=== PATIENT | female | born 1995 | race Caucasian/White ===

== ENCOUNTER 2019-07-13 17:53 | Inpatient (IN) | payer OTHER ==
[~2019-07-13] VITALS: Ht 160 cm; Wt 68.1 kg
[2019-07-13] MEDS ORDERED: IV NORMAL SALINE 1,000ML 1,000 ML IV ONE ×2 (18:15→19:30)
--- NOTE | 2019-07-13 18:22 | PHYS DOC ---
Adult General Chief Complaint Chief Complaint: hyperglycemia HPI HPI 24-year-old female with type 1 diabetes presents with hyperglycemia. The patient has an insulin pump. Over the last 2 days, the patient's blood sugars have been above 200. She has been attempting to compensate with her insulin pump reviewed today, the patient began vomiting several hours ago. She's had multiple episodes of vomiting. She has attempted to give her some more insulin her blood sugar continues to climb. It is over 500 at her last check. She decided to come the emergency room. She has been well controlled for several years. She has not had a severe hyperglycemia episode about 5 years. The patient denies any other medical complaints prior to the vomiting. She has been depressed lately as she had a second trimester miscarriage in May. The patient also had an eye exam today and her pupils were dilated. His was a regularly scheduled exam. She denies fever or chills. Review of Systems Review of Systems Constitutional: Denies fever or chills [] Eyes: Denies change in visual acuity, redness, or eye pain [] HENT: Denies nasal congestion or sore throat [] Respiratory: Denies cough or shortness of breath [] Cardiovascular: No additional information not addressed in HPI [] GI: Nausea, vomiting. Denies abdominal pain, bloody stools or diarrhea [] : Denies dysuria or hematuria [] Musculoskeletal: Denies back pain or joint pain [] Integument: Denies rash or skin lesions [] Neurologic: Denies headache, focal weakness or sensory changes [] Endocrine: Denies polyuria or polydipsia [] All other systems were reviewed and found to be within normal limits, except as documented in this note. Current Medications Current Medications Current Medications Medications (Trade) Dose Ordered Sig/[facility] Start Time Stop Time Status Last Admin Dose Admin Ondansetron HCl (Zofran) 4 mg 1X ONCE 07/13/19 18:15 07/13/19 18:16 UNV Sodium Chloride 1,000 ml @ 1,000 mls/hr 1X ONCE 07/13/19 18:15 07/13/19 19:14 UNV Physical Exam Physical Exam Constitutional: Well developed, well nourished, no acute distress, non-toxic appearance. [] HENT: Normocephalic, atraumatic, bilateral external ears normal, oropharynx dry, lips dry, no oral exudates, nose normal. [] Eyes: PERRLA, moderately dilated pupils, EOMI, conjunctiva normal, no discharge. [] Neck: Normal range of motion, no tenderness, supple, no stridor. [] Cardiovascular:Heart rate regular rhythm, no murmur [] Lungs & Thorax: Bilateral breath sounds clear to auscultation [] Abdomen: Bowel sounds normal, soft, no tenderness, no masses, no pulsatile masses. [] Skin: Warm, dry, no erythema, no rash. [] Back: No tenderness, no CVA tenderness. [] Extremities: No tenderness, no cyanosis, no clubbing, ROM intact, no edema. [] Neurologic: Alert and oriented X 3, normal motor function, normal sensory function, no focal deficits noted. [] Psychologic: Affect normal, judgement normal, mood depressed. [] EKG EKG Sinus tachycardia, rate 138, normal axis, no ST elevations or depressions.[] Radiology/Procedures Radiology/Procedures [] Impressions: EXAM: CT chest with contrast - pulmonary embolus protocol CLINICAL HISTORY: Acidosis, tachycardia. COMPARISON: None. TECHNIQUE: CT of the chest following the administration of intravenous contrast during the pulmonary arterial phase. Axial, coronal and sagittal reformatted images were generated including MIP images. ---PQRS compliance statement - One or more of the following individualized dose reduction techniques were utilized for this study: 1. Automated exposure control 2. Adjustment of the mA and/or kV according to patient size 3. Use of iterative reconstruction technique--- FINDINGS: CHEST: Diagnostic quality: Suboptimal contrast bolus timing limits evaluation for acute pulmonary embolus.. Pulmonary emboli: No large central pulmonary emboli seen. The pulmonary artery branches are not adequately assessed. Right heart strain: None Pulmonary arteries: Normal in caliber. Heart is not enlarged. No pericardial effusion. No pleural effusion or pneumothorax. Linear opacities in the lower lobes likely scarring/atelectasis. Bones: Osseous structures are unremarkable. IMPRESSION: Suboptimal contrast bolus timing limits evaluation for acute pulmonary embolus. Within these constraints, no large central pulmonary emboli seen. The pulmonary artery branches are not adequately assessed. EXAM: CT Abdomen and Pelvis with IV contrast CLINICAL HISTORY: Acidosis, tachycardia. COMPARISON: none TECHNIQUE: Helical CT of the abdomen and pelvis was performed following the administration of intravenous contrast. Oral contrast was administered. Axial, coronal and sagittal reformatted images were generated. PQRS compliance statement - One or more of the following individualized dose reduction techniques were utilized for this study: 1. Automated exposure control 2. Adjustment of the mA and/or kV according to patient size 3. Use of iterative reconstruction technique FINDINGS: Abdomen and Pelvis: No focal renal lesion. Gallbladder is normal. No biliary ductal dilatation. Pancreas is unremarkable. Spleen is normal in appearance. Adrenal glands are unremarkable. Symmetric nephrograms. Peripheral rim-like hyperenhancement of medullary pyramids bilaterally with relative hypoenhancement of the medullary pyramids. Subcentimeter hypodense right interpolar renal lesion is too small to accurately characterize. No hydronephrosis or hydroureter. Bladder is markedly distended. This can be correlated for possible voluntary or involuntary causes of urinary retention. Moderate colonic stool content is seen. No evidence for bowel obstruction. Appendix is normal. No small or large bowel dilatation. Small fat-containing periumbilical hernia. No abdominal or pelvic ascites. No abdominal pelvic lymphadenopathy. Bones: Osseous structures are unremarkable. IMPRESSION: Peripheral enhancement of the medullary pyramids bilaterally with relative hypoenhancement of the medullary pyramids. This is a nonspecific finding and may be seen with intrinsic renal disease including ATN. Bladder is markedly distended. This can be correlated for possible voluntary or involuntary causes of urinary retention. Moderate colonic stool content. No bowel obstruction. Electronically signed by: Chace Mendes MD (07/14/2019 2:44 AM) [facility] DICTATED AND SIGNED BY: CHACE MENDES MD DATE: 07/14/19 0244 CC: REJI DUARTE DO; ANDREW VENTURA MD; PCP,NO ~ Course & Med Decision Making Course & Med Decision Making Pertinent Labs and Imaging studies reviewed. (See chart for details) The patient's blood sugar is over 500. We have given her 2 L normal saline and 10 units of regular insulin. Repeat blood sugar is in the 350s. She is feeling a little bit better. I asked the patient when she changed her pump site and it was yesterday. I have asked her to give herself 10 units by insulin pump at 2100. We will see if her blood sugar continues to drop to ensure her pump is working. After about 45 minutes, the patient had an additional episode of vomiting. I gave her an additional 4 mg of Zofran and 10 mg of Compazine. Her repeat blood sugar was over 400. Her insulin pump does not appear he working properly. Her anion gap is 30. I will start patient on insulin drip and admit her to the hospital. I spoke with Dr. Ventura and he has accepted the patient for admission. Prior to going to the ICU, patient is heart rate increased to 142. Her blood pressures within normal limits. An unsure why she is so tachycardic. We have given the patient 2 L of normal saline. I have ordered an EKG and an ABG. Her EKG shows sinus tachycardia. Her ABG shows a pH of 7.002. Her CO2 is 12.9. Her O2 is 120. Bicarbonate was 3.2. The patient has an obvious metabolic acidosis no t sure this is completely explained by her diabetes. Her most recent fingerstick is 200. I ordered a CTA of the chest abdomen and pelvis. This will rule out retained products from her miscarriage as well as pulmonary embolus. Her CT does not show pulmonary embolus. The CT of the abdomen and pelvis shows possible abnormality of the kidneys. See official reading for more details. I give the patient 2 A of bicarbonate. Her heart rate improved to the 1 teens. She was given a third liter normal saline. She went to the ICU. 63 minutes of critical-care time was spent on this patient exclusive of other billable procedures. [] Dragon Disclaimer Dragon Disclaimer This electronic medical record was generated, in whole or in part, using a voice recognition dictation system. Departure Departure: Impression: Primary Impression: Hyperglycemia due to type 1 diabetes mellitus Additional Impressions: DKA, type 1 Sinus tachycardia Disposition: ADMITTED INPATIENT Admitting Physician: Andrew Ventura Condition: GUARDED Referrals: PCP,NO (PCP) Problem Qualifiers Additional Impressions: DKA, type 1 Diabetes mellitus complication detail: without coma Qualified Codes: E10.10 - Type 1 diabetes mellitus with ketoacidosis without coma REJI DUARTE DO Jul 13, 2019 18:22
[2019-07-13] MEDS ORDERED: INSULIN REGULAR 100 UNIT/ML 3ML VIAL. IV ONE ×2 (18:30→22:30)
[2019-07-13] MEDS ORDERED: ONDANSETRON PF 4 MG/2 ML VIAL. IVP ONE ×2 (18:30→22:00)
[2019-07-13 18:48] LABS: BASO # 0.1 x10^3/uL (0.0-0.2); BASO % 1 % (0-3); EOS % 0 % (0-3); HEMATOCRIT 42.8 % (36.0-47.0); HEMOGLOBIN 13.2 g/dL (12.0-15.5); LYMPH # 1.4 x10^3/uL (1.0-4.8); LYMPH % 13 % (24-48); MEAN CORPUSCULAR HEMOGLOBIN 27 pg (25-35); MEAN CORPUSCULAR HGB CONC 31 g/dL (31-37); MEAN CORPUSCULAR VOLUME 86 fL (79-100); MONO # 0.6 x10^3/uL (0.0-1.1); MONO % 5 % (0-9); NEUT # 8.8 x10^3uL (1.8-7.7); NEUT % 81 % (31-73); PLATELET COUNT 301 x10^3/uL (140-400); RED CELL DISTRIBUTION WIDTH 13.9 % (11.5-14.5); WHITE BLOOD COUNT 10.9 x10^3/uL (4.0-11.0)
[2019-07-13 19:06] LABS: ALBUMIN/GLOBULIN RATIO 0.9 (1.0-1.7); CALCIUM 8.8 mg/dL (8.5-10.1); CREATININE 1.1 mg/dL (0.6-1.0); GFR 62.1; TOTAL BILIRUBIN 0.6 mg/dL (0.2-1.0); TOTAL PROTEIN 8.5 g/dL (6.4-8.2)
[2019-07-13 19:37] LABS: BARBITURATES NEG (NEG); BENZODIAZEPINES NEG (NEG); CANNABINOIDS NEG (NEG); COCAINE NEG (NEG); METHADONE NEG (NEG); OPIATES NEG (NEG); PHENCYCLIDINE NEG (NEG)
[2019-07-13 19:41] LABS: AMPHETAMINE/METHAMPHETAMINE NEG (NEG)
[2019-07-13 19:51] LABS: BILIRUBIN,URINE NEG (NEG); CLARITY,URINE CLEAR; COLOR,URINE STRAW; GLUCOSE,URINE 500 mg/dL (NEG)
[2019-07-13 19:52] LABS: BACTERIA,URINE 0 /HPF (0-FEW); NITRITE,URINE NEG (NEG); RBC,URINE 0 /HPF (0-2); SQUAMOUS EPITHELIAL CELL,UR OCC /LPF; UROBILINOGEN,URINE 0.2 mg/dL (0.2 mg/dL); WBC,URINE OCC /HPF (0-4)
[2019-07-13] MEDS ORDERED: PROCHLORPERAZINE 10 MG/2 ML VIAL. IV ONE (22:00)
[2019-07-13] MEDS ORDERED: DEXTROSE 50% 25 GM / 50ML DISP.SYRIN. IV PRN (22:15)
[2019-07-13] MEDS ORDERED: INSULIN REGULAR VIAL 150 UNIT in 0.9 % SODIUM CHLORIDE 150ML 150 ML IV PRN (22:15)
[2019-07-13] MEDS ORDERED: SODIUM CHLORIDE ONE (22:31)
[2019-07-13] MEDS ORDERED: 0.9 % SODIUM CHLORIDE 150ML 150 ML ONE (22:59)
[2019-07-13] MEDS ORDERED: ONDANSETRON PF 4 MG/2 ML VIAL. IV PRN (23:00)
[2019-07-14] VITALS (17 sets, daily range): BP systolic 87–130; BP diastolic 41–90
[2019-07-14] MEDS ORDERED: SODIUM BICARBONATE 50 MEQ/50 ML VIAL. ONE ×2 (00:59→01:04)
[2019-07-14] MEDS ORDERED: SODIUM BICARB ADULT 8.4% 50 MEQ/50 ML DISP.SYRIN. IV ONE (01:00)
[2019-07-14] MEDS ORDERED: IOHEXOL 350 MG/ML 100 ML VIAL. IV ONE (01:15)
[2019-07-14] MEDS ORDERED: IV NORMAL SALINE 1,000ML 1,000 ML IV ONE ×3 (01:15→07:15)
[2019-07-14] MEDS ORDERED: CONTRAST GIVEN MC PRN (01:30)
[2019-07-14] MEDS ORDERED: SODIUM BICARBONATE 50 MEQ/50 ML VIAL. IV ONE (01:30)
--- NOTE | 2019-07-14 02:47 | RAD ---
EXAM: CT chest with contrast - pulmonary embolus protocol CLINICAL HISTORY: Acidosis, tachycardia. COMPARISON: None. TECHNIQUE: CT of the chest following the administration of intravenous contrast during the pulmonary arterial phase. Axial, coronal and sagittal reformatted images were generated including MIP images. ---PQRS compliance statement - One or more of the following individualized dose reduction techniques were utilized for this study: 1. Automated exposure control 2. Adjustment of the mA and/or kV according to patient size 3. Use of iterative reconstruction technique--- FINDINGS: CHEST: Diagnostic quality: Suboptimal contrast bolus timing limits evaluation for acute pulmonary embolus.. Pulmonary emboli: No large central pulmonary emboli seen. The pulmonary artery branches are not adequately assessed. Right heart strain: None Pulmonary arteries: Normal in caliber. Heart is not enlarged. No pericardial effusion. No pleural effusion or pneumothorax. Linear opacities in the lower lobes likely scarring/atelectasis. Bones: Osseous structures are unremarkable. IMPRESSION: Suboptimal contrast bolus timing limits evaluation for acute pulmonary embolus. Within these constraints, no large central pulmonary emboli seen. The pulmonary artery branches are not adequately assessed. EXAM: CT Abdomen and Pelvis with IV contrast CLINICAL HISTORY: Acidosis, tachycardia. COMPARISON: none TECHNIQUE: Helical CT of the abdomen and pelvis was performed following the administration of intravenous contrast. Oral contrast was administered. Axial, coronal and sagittal reformatted images were generated. PQRS compliance statement - One or more of the following individualized dose reduction techniques were utilized for this study: 1. Automated exposure control 2. Adjustment of the mA and/or kV according to patient size 3. Use of iterative reconstruction technique FINDINGS: Abdomen and Pelvis: No focal renal lesion. Gallbladder is normal. No biliary ductal dilatation. Pancreas is unremarkable. Spleen is normal in appearance. Adrenal glands are unremarkable. Symmetric nephrograms. Peripheral rim-like hyperenhancement of medullary pyramids bilaterally with relative hypoenhancement of the medullary pyramids. Subcentimeter hypodense right interpolar renal lesion is too small to accurately characterize. No hydronephrosis or hydroureter. Bladder is markedly distended. This can be correlated for possible voluntary or involuntary causes of urinary retention. Moderate colonic stool content is seen. No evidence for bowel obstruction. Appendix is normal. No small or large bowel dilatation. Small fat-containing periumbilical hernia. No abdominal or pelvic ascites. No abdominal pelvic lymphadenopathy. Bones: Osseous structures are unremarkable. IMPRESSION: Peripheral enhancement of the medullary pyramids bilaterally with relative hypoenhancement of the medullary pyramids. This is a nonspecific finding and may be seen with intrinsic renal disease including ATN. Bladder is markedly distended. This can be correlated for possible voluntary or involuntary causes of urinary retention. Moderate colonic stool content. No bowel obstruction. Electronically signed by: Chace Sparks MD (07/14/2019 2:44 AM) [facility]
[2019-07-14] MEDS ORDERED: POTASSIUM CHLORIDE 10MEQ 100 ML IV PRN ×5 (03:30)
[2019-07-14] MEDS ORDERED: MAGNESIUM SULFATE 2GM 50 ML IV PRN (03:30)
[2019-07-14] MEDS ORDERED: IV NORMAL SALINE 1,000ML 1,000 ML IV SCH (04:00)
[2019-07-14] MEDS ORDERED: INSULIN REGULAR VIAL 150 UNIT in 0.9 % SODIUM CHLORIDE 150ML 150 ML IV PRN (04:00)
[2019-07-14] MEDS ORDERED: IV DEXTROSE 5 %-0.45 % NACL 1,000 ML IV SCH (04:00)
[2019-07-14] MEDS: POTASSIUM CL 20MEQ D5-0.45NACL 1,000 ML IV SCH ×4 (04:24→17:04)
[2019-07-14 06:15] LABS: BASO % 0 % (0-3); EOS % 0 % (0-3); HEMATOCRIT 37.1 % (36.0-47.0); HEMOGLOBIN 11.1 g/dL (12.0-15.5); LYMPH # 2.4 x10^3/uL (1.0-4.8); LYMPH % 16 % (24-48); MEAN CORPUSCULAR HEMOGLOBIN 26 pg (25-35); MEAN CORPUSCULAR HGB CONC 30 g/dL (31-37); MEAN CORPUSCULAR VOLUME 86 fL (79-100); MONO # 1.2 x10^3/uL (0.0-1.1); MONO % 8 % (0-9); NEUT # 11.3 x10^3uL (1.8-7.7); NEUT % 76 % (31-73); PLATELET COUNT 256 x10^3/uL (140-400); RED CELL DISTRIBUTION WIDTH 13.6 % (11.5-14.5); WHITE BLOOD COUNT 14.9 x10^3/uL (4.0-11.0)
[2019-07-14 06:20] LABS: CALCIUM 7.2 mg/dL (8.5-10.1); CREATININE 0.9 mg/dL (0.6-1.0); GFR 78.3; POTASSIUM 3.8 mmol/L (3.5-5.1)
[2019-07-14] MEDS ORDERED: POTASSIUM CHLORIDE 20 MEQ TABLET.ER. PO ONE (07:15)
[2019-07-14] MEDS: POTASSIUM CHLORIDE 10MEQ 100 ML IV SCH ×4 (07:43→12:30)
[2019-07-14] MEDS ORDERED: IV NORMAL SALINE 1,000ML 1,000 ML IV PRN (08:00)
[2019-07-14 08:05] LABS: BGAS PH 7.22 (7.35-7.45)
[2019-07-14] MEDS: IV NORMAL SALINE 1,000ML 1,000 ML IV SCH ×4 (08:38→23:56)
[2019-07-14] MEDS: ACETAMINOPHEN 325 MG TABLET PO PRN ×2 (08:38→17:17)
[2019-07-14] MEDS ORDERED: FLU VAX QS 2019-20 (36MOS+)/PF 0.5 ML SYRINGE. VAX IM ONE (09:00)
[2019-07-14 10:21] LABS: CALCIUM 6.5 mg/dL (8.5-10.1); CREATININE 0.8 mg/dL (0.6-1.0); GFR 89.7; POTASSIUM 3.9 mmol/L (3.5-5.1)
[2019-07-14] MEDS ORDERED: MAGNESIUM SULFATE 2GM 50 ML IV ONE (10:45)
[2019-07-14 14:45] LABS: BASO % 0 % (0-3); EOS % 0 % (0-3); HEMATOCRIT 35.3 % (36.0-47.0); HEMOGLOBIN 11.1 g/dL (12.0-15.5); LYMPH # 2.3 x10^3/uL (1.0-4.8); LYMPH % 21 % (24-48); MEAN CORPUSCULAR HEMOGLOBIN 26 pg (25-35); MEAN CORPUSCULAR HGB CONC 32 g/dL (31-37); MEAN CORPUSCULAR VOLUME 83 fL (79-100); MONO # 0.8 x10^3/uL (0.0-1.1); MONO % 8 % (0-9); NEUT # 7.7 x10^3uL (1.8-7.7); NEUT % 71 % (31-73); PLATELET COUNT 234 x10^3/uL (140-400); RED BLOOD COUNT 4.27 x10^6/uL (3.50-5.40); RED CELL DISTRIBUTION WIDTH 13.6 % (11.5-14.5); WHITE BLOOD COUNT 10.9 x10^3/uL (4.0-11.0)
[2019-07-14 14:51] LABS: CREATININE 0.7 mg/dL (0.6-1.0); GFR 104.6; POTASSIUM 4.1 mmol/L (3.5-5.1)
--- NOTE | 2019-07-14 15:01 | CARD ---
MR#: [id number] Date of Study: 07/14/2019 Ordering Physician: LISBET TODD, Referring Physician: LISBET TODD Tech: Linda Guillory RDCS APPROVED REPORT EXAM: Two-dimensional and M-mode echocardiogram with Doppler and color Doppler. Other Information Quality : Good Rhythm : Tachycardia INDICATION Arrhythmia 2D DIMENSIONS RVDd2.8 (2.9-3.5cm)Left Atrium(2D)3.0 (1.6-4.0cm) IVSd0.8 (0.7-1.1cm)Aortic Root(2D)2.4 (2.0-3.7cm) LVDd3.9 (3.9-5.9cm)PWd0.9 (0.7-1.1cm) LVDs2.1 (2.5-4.0cm)FS (%) 30.0 % SV50.6 mlLVEF(%)60.0 (>50%) Aortic Valve AoV Peak Albin.113.0cm/sAoV VTI19.0cm AO Peak GR.5.1mmHgAO Mean GR.3mmHg CHARI (VTI)2.60cm2 Mitral Valve MV E Xqqpyszf630.0cm/sMV DECEL JAOV266tj MV A Fftakrgw08.0cm/sE/A Ratio1.4 LEFT VENTRICLE The left ventricle is normal size. There is normal left ventricular wall thickness. The left ventricu lar systolic function is normal. The Ejection Fraction is 60-65%. There is normal LV segmental wall m otion. RIGHT VENTRICLE The right ventricle is normal size. The right ventricular systolic function is normal. ATRIA The left atrium size is normal. The right atrium size is normal. The interatrial septum is intact wit h no evidence for an atrial septal defect or patent foramen ovale as noted on 2-D or Doppler imaging. AORTIC VALVE The aortic valve is normal in structure and function. Doppler and Color Flow revealed no significant aortic regurgitation. There is no significant aortic valvular stenosis. MITRAL VALVE The mitral valve is normal in structure and function. There is no evidence of mitral valve prolapse. There is no mitral valve stenosis. Doppler and Color-flow revealed trace mitral regurgitation. TRICUSPID VALVE The tricuspid valve is normal in structure and function. Doppler and Color Flow revealed no tricuspid valve regurgitation noted. There is no tricuspid valve stenosis. PULMONIC VALVE The pulmonary valve is normal in structure and function. Doppler and Color Flow revealed no pulmonic valvular regurgitation. There is no pulmonic valvular stenosis. GREAT VESSELS The aortic root is normal in size. The ascending aorta is normal in size. The IVC is normal in size a nd collapses >50% with inspiration. PERICARDIAL EFFUSION There is no evidence of significant pericardial effusion. Critical Notification Critical Value: No <Conclusion> The left ventricular systolic function is normal. The Ejection Fraction is 60-65%. There is normal LV segmental wall motion. Trace mitral regurgitation. There is no evidence of significant pericardial effusion. Signed by : Donovan Jewell, Electronically Approved : 07/14/2019 15:00:30
[2019-07-14] MEDS ORDERED: INSULIN LISPRO 300 UNITS/3 ML VIAL. SQ PRN (16:00)
[2019-07-14] MEDS: INSULIN LISPRO 300 UNITS/3 ML VIAL. SQ PRN (18:01)
--- NOTE | 2019-07-14 23:19 | HP ---
ADMIT DATE: 07/13/2019 HISTORY OF PRESENT ILLNESS: The patient is a 24-year-old female patient, who was brought to the Emergency Room with the recurrent bouts of vomiting that began for several hours. She had multiple episodes of vomiting. She had attempted to give herself some more insulin, but her blood sugar continued to climb and her insulin infusion pump has malfunctioned and was repaired by [employer] and she received on Friday late in the evening and so she started using it on Friday, but apparently it continued to malfunction and when the blood sugar reached more than 500 at her last check, she decided to come to the Emergency Room. She has been well controlled for several years. She has not had any severe hyperglycemia for almost 5 years. She said that the last time she had DKA was about 5 years ago. She denied any other medical problems, especially denied any diarrhea and denied any chills, rigors, or fever. She has been depressed lately. She had a second trimester miscarriage in May and in fact, she was seen also today by an position classification specialist for an eye exam with her pupils got dilated and it was a scheduled exam. Initial evaluation in the Emergency Room showed that she was extremely acidotic. Her pH was 7, pCO2 of 13, pO2 of 119, bicarbonate 3, and oxygen saturation was 96% on FiO2 of 21%. Her initial chemistry showed also that she was mildly hypokalemic and extremely acidotic with a bicarbonate of only 16. She was given 3 liters of fluid and was started on insulin drip and was admitted to the ICU. A repeat chemistry showed that her bicarbonate has gone down further to only 6 micromole/liter, although her blood sugar was 110. Therefore, I decided to give her more IV fluid together with D5 half normal with the potassium. By the time I saw her this afternoon, she was more awake, alert, and responding appropriately. Her anion gap is closing, although not yet completely and her sodium has normalized and bicarbonate is up to 12 millimole per liter. Blood sugar seemed obviously much better controlled. PAST MEDICAL HISTORY: Significant for type 1 diabetes. She denied any cataract or diabetic retinopathy. Denied any diabetic renal involvement and/or diabetic neuropathy. PAST SURGICAL HISTORY: Significant for D and C and wisdom tooth extraction. ALLERGIES: She is allergic to CHLORHEXIDINE, BLUEBERRY and LETTUCE. MEDICATIONS: She is currently on Regular insulin. FAMILY HISTORY: Unremarkable. SOCIAL HISTORY: She is , does not smoke, and drinks alcohol occasionally. Does not use any drugs. She moved with her , who is in the about 3 years ago from [place]. REVIEW OF SYSTEMS: The patient denied any blurring of vision, cataract, glaucoma, or macular degeneration. Denied any earache, tinnitus, or sensorineural deafness. Denied any nosebleeds, stuffy nose, or postnasal drip. Denied any sore throat, sore tongue, toothache, hoarseness of voice, or difficulty swallowing. She did complain of nausea and vomiting, but denied any diarrhea or constipation. Denied any hematemesis, melena, or hematochezia. Denied any dysuria, frequency, or hematuria. PHYSICAL EXAMINATION: GENERAL: On arrival, the patient looked well. No pallor, jaundice, or cyanosis. No lymphadenopathy and no thyromegaly. No jugular venous distention. No limb edema. VITAL SIGNS: Her heart rate was 128, blood pressure was 110/53, temperature was 98.3, respiratory rate 20, and oxygen saturation was 99%. HEAD, EYES, EARS, NOSE, AND THROAT: Showed normocephalic and atraumatic. NECK: Supple. HEART: Showed normal first and second heart sounds. No gallop or murmur. CHEST: Clear to auscultation. No crepitation or rhonchi. ABDOMEN: Distended, soft, and nontender. NEUROLOGIC: She was very lethargic, but arousable. All cranial nerves are intact. EXTREMITIES: She moves extremities without difficulty. LABORATORY DATA: Her lab work on arrival showed that her serum sodium was 132, potassium 5, chloride 94, bicarbonate 8, anion gap of 30, BUN is 21, and creatinine 1.1. Estimated GFR was 62 mL per minute. Her glucose was 566. Lactic acid was only 1.7. Calcium was 8.8. Total bilirubin, AST, and ALT were normal. Alkaline phosphatase was elevated. Total protein was 8.5 and albumin was 4. Her white cell count was 10,900, hemoglobin 13.2, hematocrit 42, MCV 86, and platelet count of 301,000 with normal manual differential. Her initial blood gases showed a pH of 7, pCO2 13, pO2 of 119, bicarbonate 3, and oxygen saturation was 96% on FiO2 of 21%. Her urinalysis showed the urine was straw colored, clear with a pH of 5.5 and specific gravity of 1.020. The urine was negative for protein. There was large amount of glucose, large amount of ketones, and negative for blood, nitrite, and leukocyte esterase. There are no rbc's and wbc's and no bacteria. Her urine test was negative and her urine toxic screen was essentially negative. IMAGING STUDIES: She did have a CT scan of the abdomen and pelvis and she was extremely tachycardic and the impression was the study was suboptimal. Contrast bolus timing limits evaluation for acute pulmonary embolus. Within these constraints, no large central pulmonary emboli are seen. The pulmonary artery branches are not adequately assessed. The CT scan of the abdomen and pelvis showed that she has peripheral enhancement of the medullary pyramids bilaterally with relative hypo-enhancement of the medullary pyramids. This is a nonspecific finding and may be seen with intrinsic renal disease including ATN. Bladder is markedly distended. This can be correlated for possible voluntary and involuntary causes of urinary retention. She has also moderate colonic stool content. No bowel obstruction. ASSESSMENT AND PLAN: The patient was basically admitted to the ICU to continue with DKA protocol with the IV fluid, insulin drip, to replenish her potassium and magnesium and aggressively rehydrate with the IV fluid. LISBET TODD MD DR: VANESSA/jasiel JOB#: [id number] / [id number]
[2019-07-15] VITALS (7 sets, daily range): BP systolic 94–105; BP diastolic 53–71
[2019-07-15] MEDS: INSULIN LISPRO 300 UNITS/3 ML VIAL. SQ PRN ×2 (02:53→09:16)
[2019-07-15 06:06] LABS: CALCIUM 7.6 mg/dL (8.5-10.1); CREATININE 0.6 mg/dL (0.6-1.0); MAGNESIUM 1.7 mg/dL (1.8-2.4); POTASSIUM 3.6 mmol/L (3.5-5.1)
[2019-07-15] MEDS: IV NORMAL SALINE 1,000ML 1,000 ML IV SCH (06:23)
[2019-07-15] MEDS ORDERED: INSU100V SQ (10:31)
[2019-07-15 18:07] LABS: THYROXINE 6.3 ug/dL (4.5-12.0)
--- NOTE | 2019-07-16 08:15 | EKG ---
[address] [address] Test Date: 2019-07-14 Test Time: 00:27:27 Pat Name: STALIN GRIFFTIH Department: Room: [facility] Gender: F Corporate Security Officer: : 1995 Requested By: REJI DUARTE Order Number: [id number] Reading MD: Measurements Intervals [place] Rate: 138 P: 63 OK: 130 QRS: 100 QRSD: 80 T: 9 QT: 282 QTc: 434 Interpretive Statements SINUS TACHYCARDIA RIGHTWARD AXIS QRS(T) CONTOUR ABNORMALITY CONSIDER INFERIOR MYOCARDIAL DAMAGE POSSIBLY ABNORMAL ECG RI6.01 No previous ECG available for comparison
== END 2019-07-15 10:45 | disposition home or self-care (01) | DRG 639 ==
LOC: ER 17:53 → ICU 22:42
PROVIDERS: ADMIT Internal Medicine; ATTEND Internal Medicine
DX: E10.10 Type 1 diabetes mellitus with ketoacidosis without coma (principal); E87.6 Hypokalemia; Z96.41 Presence of insulin pump (external) (internal); Z79.4 Long term (current) use of insulin; Z91.018 Allergy to other foods
CPT/HCPCS: 36415; 36600; 71275; 74177; 80048; 80053; 80307; 81001; 81025; 82010; 82803; 82947; 83605; 83735; 84100; 84436; 84443; 84480; 85025; 90471; 90686; 93005; 93306; 96361; 96365; 96366; 96375; 96376; J0780; J1815; J2405; J3475; J3480; Q9967; 99291-25; J7030

== ENCOUNTER 2021-06-02 23:20 | Emergency (ER) | payer OTHER ==
[~2021-06-02] VITALS: Ht 160 cm; Wt 63.6 kg
[~2021-06-02 23:20] MED LIST: INSU100V SQ
--- NOTE | 2021-06-02 23:31 | PHYS DOC ---
Past History Past Medical History: Diabetes Past Surgical History: Other Alcohol Use: Occasionally Drug Use: None General Adult EDM: Chief Complaint: HYPERGLYCEMIA HPI: HPI: ". I ve been vomiting.. for last 2 days.. " Patient is a 26 year old female dependent who presents with above hx and complaints of hyperglycemia, nausea, vomiting, dehydration. Patient has significant medical history of reviewed episodes of DKA. Denies any history of cataracts or diabetic retinopathy. Denies any history of renal involvement. Patient denies any neuro defects from her diabetes type 1. Patient has had previous admissions at our facility for dehydration and DKA. Patient has had past surgical history D&C and wisdom tooth extractions. No recent travel. No specific ill contacts. Has had both Covid vaccinations. Patient denies any use of drugs. Patient does not smoke. Does not drink alcohol. Patient does not use drugs. Pt has had placement of new insulin pump in December. Review of Systems: Review of Systems: Constitutional: Denies fever or chills Eyes: Denies change in visual acuity HENT: Denies nasal congestion or sore throat Respiratory: Denies cough or shortness of breath Cardiovascular: Denies chest pain or edema GI: History of abdominal pain, nausea, vomiting. Denies, bloody stools or diarrhea : Denies dysuria Musculoskeletal: Denies back pain or joint pain Integument: Denies rash Neurologic: Denies headache, focal weakness or sensory changes Endocrine: Denies polyuria or polydipsia Lymphatic: Denies swollen glands Psychiatric: Denies depression or anxiety Family History: Family History: Noncontributory to presentation Current Medications: Current Meds: See nursing for home meds Allergies: Allergies: Allergies Coded Allergies Type Severity Reaction Last Updated Verified blueberry Allergy Unknown 07/13/19 Yes lettuce Allergy Unknown 07/13/19 Yes Physical Exam: PE: Constitutional: Well developed, well nourished, in acute distress, non-toxic appearance. [] HENT: Normocephalic, atraumatic, bilateral external ears normal, oropharynx dry,, no oral exudates, nose normal. [] Eyes: PERRLA, EOMI, conjunctiva normal, no discharge. [] Neck: Normal range of motion, no tenderness, supple, no stridor. [] Cardiovascular: Tachycardia heart rate regular rhythm, no murmur [] Lungs & Thorax: Bilateral breath sounds equal at apex auscultation [] Abdomen: Bowel sounds normal, soft, mild epigastric tenderness, no masses, no pulsatile masses. Surgical scars Skin: Warm, dry, no erythema, no rash. [] Back: No tenderness, no CVA tenderness. [] Extremities: No tenderness, no cyanosis, no clubbing, ROM intact, no edema. [] No cording appreciated Neurologic: Alert and oriented X 3, normal motor function, normal sensory function, no focal deficits noted. [] Psychologic: Affect anxious, judgement normal, mood normal. [] EKG: EKG: My interpretation EKG shows sinus tachycardia-33 bpm. No acute morphology right axis deviation. Time EKG is 2350 hrs. [] Radiology/Procedures: Radiology/Procedures: [] Heart Score: C/O Chest Pain: No Risk Factors: Risk Factors: DM, Current or recent (<one month) smoker, HTN, HLP, family his tory of CAD, obesity. Risk Scores: Score 0 - 3: 2.5% MACE over next 6 weeks - Discharge Home Score 4 - 6: 20.3% MACE over next 6 weeks - Admit for Clinical Observation Score 7 - 10: 72.7% MACE over next 6 weeks - Early Invasive Strategies Course & Med Decision Making: Course & Med Decision Making Pertinent Labs and Imaging studies reviewed. (See chart for details) Discussed presentation, testing and tx plan with Dr. Hutton- Will accept pt., as admit. 0130 hrs. No current ICU beds. Will not take pt. on insulin drip. 0145 hr.s with a gap more than 10. Pt. requesting discharge. 04:00 hrs. Pt. still requesting discharge 0500 hrs. Agree to stay a little longer Pt. still insistent on discharge at 0600. Discussed with patient she still has ketones in her urine however her glucose has decreased to 136 on last check. Discussed risk and benefits of the discharge prematurely. Patient states she is aware of risk. Patient's insulin pump is 1.5 units/h. Impression: 1. Hyperglycemia 2. Dehydration 3. Leukocytosis 15.1 4. DKA- pH 7.198 [] Roya Disclaimer: Roya Disclaimer: This electronic medical record was generated, in whole or in part, using a voice recognition dictation system. Departure Departure: Referrals: PCP,CHERI (PCP) Roya Disclaimer This chart was dictated in whole or in part using Voice Recognition software in a busy, high-work load, and often noisy Emergency Department environment. It may contain unintended and wholly unrecognized errors or omissions. RIDGE HARLEY MD Jun 02, 2021 23:31
[2021-06-02] MEDS ORDERED: FAMOTIDINE 20 MG/2 ML VIAL ONE (23:43)
[2021-06-02] MEDS ORDERED: ONDANSETRON PF 4 MG/2 ML VIAL. ONE (23:43)
[2021-06-02] MEDS ORDERED: INSULIN REGULAR VIAL 100 UNIT in IV NORMAL SALINE 100ML 100 ML IV PRN (23:45)
[2021-06-03] MEDS ORDERED: ONDANSETRON PF 4 MG/2 ML VIAL. IVP ONE
[2021-06-03] MEDS ORDERED: FAMOTIDINE 20 MG/2 ML VIAL IVP ONE
[2021-06-03] MEDS ORDERED: IV NORMAL SALINE 1,000ML 1,000 ML IV SCH
--- NOTE | 2021-06-03 00:01 | EKG ---
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
[2021-06-03] MEDS ORDERED: IV NORMAL SALINE 100ML 100 ML ONE (00:06)
[2021-06-03 00:34] LABS: BASO # 0.1 x10^3/uL (0.0-0.2); BASO % 0 % (0-3); EOS % 0 % (0-3); HEMATOCRIT 46.7 % (36.0-47.0); HEMOGLOBIN 15.3 g/dL (12.0-15.5); LYMPH # 0.9 x10^3/uL (1.0-4.8); LYMPH % 6 % (24-48); MEAN CORPUSCULAR HEMOGLOBIN 29 pg (25-35); MEAN CORPUSCULAR HGB CONC 33 g/dL (31-37); MEAN CORPUSCULAR VOLUME 90 fL (79-100); MONO # 0.5 x10^3/uL (0.0-1.1); MONO % 4 % (0-9); NEUT # 13.6 x10^3uL (1.8-7.7); NEUT % 90 % (31-73); PLATELET COUNT 299 x10^3/uL (140-400); RED CELL DISTRIBUTION WIDTH 13.9 % (11.5-14.5); WHITE BLOOD COUNT 15.1 x10^3/uL (4.0-11.0)
[2021-06-03 00:47] LABS: BILIRUBIN,URINE NEG (NEG); CLARITY,URINE CLEAR; COLOR,URINE YELLOW; GLUCOSE,URINE 500 mg/dL (NEG); NITRITE,URINE NEG (NEG); RBC,URINE 0 /HPF (0-2); UROBILINOGEN,URINE 0.2 mg/dL (0.2 mg/dL)
[2021-06-03 00:48] LABS: BACTERIA,URINE 0 /HPF (0-FEW); SQUAMOUS EPITHELIAL CELL,UR OCC /LPF; WBC,URINE OCC /HPF (0-4)
[2021-06-03 00:49] LABS: ALBUMIN 4.3 g/dL (3.4-5.0); DIRECT BILIRUBIN 0.2 mg/dL (0.0-0.2); GFR 68.1; POTASSIUM 4.4 mmol/L (3.5-5.1); TOTAL BILIRUBIN 0.6 mg/dL (0.2-1.0); TOTAL PROTEIN 8.2 g/dL (6.4-8.2)
[2021-06-03 00:50] LABS: BARBITURATES NEG (NEG); BENZODIAZEPINES NEG (NEG); CANNABINOIDS NEG (NEG); COCAINE NEG (NEG); METHADONE NEG (NEG); OPIATES NEG (NEG); PHENCYCLIDINE NEG (NEG)
[2021-06-03 00:53] LABS: AMPHETAMINE/METHAMPHETAMINE NEG (NEG)
[2021-06-03 01:15] LABS: % BANDS 2 % (0-9); % LYMPHS 12 % (24-48); % MONOS 2 % (0-10); % SEGS 84 % (35-66)
[2021-06-03 01:16] LABS: PLT ESTIMATE ADEQUATE (ADEQUATE)
[2021-06-03 01:55] LABS: BGAS PH 7.2 (7.35-7.45)
[2021-06-03] MEDS ORDERED: IV RINGERS SOLUTION,LACTATED 1,000 ML IV SCH ×2 (02:00→04:00)
[2021-06-03] MEDS ORDERED: IV RINGERS SOLUTION,LACTATED 1,000 ML IV ONE ×2 (02:00→04:15)
[2021-06-03 02:28] LABS: CALCIUM 7.9 mg/dL (8.5-10.1); CREATININE 0.9 mg/dL (0.6-1.0); GFR 76.9; POTASSIUM 3.9 mmol/L (3.5-5.1)
[2021-06-03] MEDS ORDERED: SODIUM BICARB ADULT 8.4% 50 MEQ/50 ML DISP.SYRIN. IV ONE (02:30)
--- NOTE | 2021-06-03 02:40 | RAD ---
EXAM: ABDOMEN 2 VIEWS WITH PA CHEST History: Nausea, vomiting TECHNIQUE: An upright view the chest and upright and supine views of the abdomen COMPARISON: None available. FINDINGS: The cardiomediastinal silhouette grossly appears unremarkable. The lungs are clear. Moderat e amount of feces identified in the colon. The bowel gas pattern appears unremarkable. IMPRESSION: 1. Moderate amount of feces identified throughout the colon. Correlate for constipation. Electronically signed by: Khoi Allen MD (06/03/2021 2:38 AM) [id number]
[2021-06-03] MEDS ORDERED: ACETAMINOPHEN 325 MG TABLET PO PRN (04:00)
[2021-06-03] MEDS ORDERED: INSULIN REGULAR VIAL 100 UNIT in IV NORMAL SALINE 100ML 100 ML IV PRN (04:00)
[2021-06-03] MEDS ORDERED: ONDANSETRON PF 4 MG/2 ML VIAL. IVP PRN (04:00)
[2021-06-03 05:30] LABS: BASO # 0.1 x10^3/uL (0.0-0.2); BASO % 1 % (0-3); EOS % 0 % (0-3); HEMATOCRIT 38.2 % (36.0-47.0); HEMOGLOBIN 12.8 g/dL (12.0-15.5); LYMPH # 1.9 x10^3/uL (1.0-4.8); LYMPH % 11 % (24-48); MEAN CORPUSCULAR HEMOGLOBIN 30 pg (25-35); MEAN CORPUSCULAR HGB CONC 34 g/dL (31-37); MEAN CORPUSCULAR VOLUME 89 fL (79-100); MONO % 6 % (0-9); NEUT # 13.4 x10^3uL (1.8-7.7); NEUT % 82 % (31-73); PLATELET COUNT 238 x10^3/uL (140-400); RED BLOOD COUNT 4.31 x10^6/uL (3.50-5.40); RED CELL DISTRIBUTION WIDTH 13.6 % (11.5-14.5); WHITE BLOOD COUNT 16.4 x10^3/uL (4.0-11.0)
[2021-06-03 05:34] LABS: BACTERIA,URINE 0 /HPF (0-FEW); BILIRUBIN,URINE SMALL (NEG); CLARITY,URINE CLEAR; COLOR,URINE YELLOW; GLUCOSE,URINE 100 mg/dL (NEG); NITRITE,URINE NEG (NEG); RBC,URINE 0 /HPF (0-2); SQUAMOUS EPITHELIAL CELL,UR FEW /LPF; UROBILINOGEN,URINE 0.2 mg/dL (0.2 mg/dL); WBC,URINE OCC /HPF (0-4)
[2021-06-03 06:36] VITALS: BP 91/60
[2021-06-03 06:36] LABS: CALCIUM 7.8 mg/dL (8.5-10.1); CREATININE 0.8 mg/dL (0.6-1.0); GFR 88.1; POTASSIUM 3.4 mmol/L (3.5-5.1)
== END 2021-06-03 06:37 | disposition left against medical advice (07) ==
LOC: ER 23:20
DX: E11.10 Type 2 diabetes mellitus with ketoacidosis without coma (principal); E86.0 Dehydration; D72.829 Elevated white blood cell count, unspecified; Z20.822 Contact with and (suspected) exposure to COVID-19
CPT/HCPCS: 36415; 36600; 74022; 80048; 80076; 80307; 81001; 81025; 82150; 82550; 82803; 82947; 83690; 84484; 85007; 85025; 87426; 93005; 96361; 96374; 96375; 99285; C9803; J1815; J2405; J3490; J7030; J7120; U0003